=== PATIENT | female | born 1935 | race Caucasian/White ===

== ENCOUNTER 2018-10-15 07:32 | Observation (INO) ==
--- NOTE | 2018-10-15 07:39 | Emergency Department Note ---
Disposition Clinical Impression: Weakness Chest pain Qualifiers: Chest pain type: unspecified Qualified Code(s): R07.9 - Chest pain, unspecified Disposition: Admitted As Inpatient Condition: Fair Forms: ED Satisfaction Letter Time of Disposition: 09:08 General Adult HPI - General Chief complaint: ED Weakness Stated complaint: weakness Time Seen by Provider: 10/15/18 07:38 Source: patient Limitations: no limitations Nursing Notes Reviewed: Yes Vital Signs Reviewed: Yes - History of Present Illness HPI Narrative: She is an 83-year-old female who presents today with the chief complaint of weakness and chest pain. She states that she started having chest pain about 5:00 in the morning and had some pain that awoke her from sleep. She says that she had some associated reflux with radiation down her right arm. Denies any radiation down to the left arm or to her back. Denies a previous cardiac histor y but does have a family history of cardiac disease. She does have associated nausea but not thrown up. Do not take any medications prior to coming to the hospital. At this time she does not have any active chest pain. Described her weakness is generalized weakness denies any loss of function of any extremities, focal weakness. Denies any fevers, chills, palpitations, vomiting, abdominal pain. Pt Subjective Complaint: chest pain Pain Scale: 0 - Related Data Home Medications Medication Instructions Recorded Confirmed Aspirin [Adult Aspirin] 81 mg PO HS 10/15/18 10/15/18 Omeprazole [PriLOSEC] 20 mg PO BIDAC 10/15/18 10/15/18 amLODIPine [Norvasc] 5 mg PO DAILY 10/15/18 10/15/18 Allergies Allergy/AdvReac Type Severity Reaction Status Date / Time Sulfa (Sulfonamide AdvReac Nausea Verified 10/14/17 22:20 Antibiotics) Review of Systems: Constitutional: denies fever, chills HEENT: denies blurry vision, tinnitus, sore throat Cardio: Admit chest pain, denies palpiltations Lungs: admits SOB, denies wheeze, cough, hemoptysis GI: admits to nausea; denies V/D, denies abdominal pain : denies dysuria, hematuria MSK: denies decreased ROM, joint swelling or stiffness; can ambultate on their own Neuro: admits to weakness, deneis numbness or tingling, denies dizziness Skin: denies open wounds or cuts, denies tattoos Lymph: denies swelling Allergy: admits to medication allergy All systems ED: reviewed and negative except as stated. Review of Systems: As Per [facility] Past Medical History - Past Medical History Attestation: Yes The following information was validated with the patient. Source: patient Medical history: Reports: hypertension Psychiatric history: Reports: no psych history PERSONNEL GENERALIST MANAGER history: Reports: no PERSONNEL GENERALIST MANAGER history - Social History Smoking Status: Never smoker Smokeless Tobacco Status: No Alcohol use: Reports: none Drug use: Reports: none Physical Exam Vital signs noted, please see nurses notes. General: Well-developed, well-nourished patient lying in bed who appears non- toxic, anxious appearing Head: Atraumatic, normocephalic. Eyes: Sclera anicteric. ENT: Mucous membranes moist. Heart: Regular rate and rhythm without appreciable murmur. S1S2 CTA Neck: no JVD Lungs: Normal respiratory pattern without distress, lungs clear to auscultation b/l. No wheeze, rhonchi, rales or stridor Abdomen: Soft, non-tender, non-distended, no guarding or peritoneal signs. No bruising noted to the abdomen. No surgical scars present. Skin: Warm and dry without rash. Neurologic: Awake and alert with normal speech and mental status. Pupils are equal. Moves all extremities equally well. No focal deficits or lateralizing signs. Follows command. Psychiatric: anxious appearing Musculoskeletal: No peripheral edema. No asymmetrical swelling, no calf tenderness - General Limitations: no limitations General appearance: alert, in no apparent distress Course Course Narrative: Presenting with chest pain for the last 2-1/2 hours. She does have a concerning history for ACS and we will give her 1 dose of aspirin at this time. We will also obtain basic labs, EKG, chest x-ray, troponin. She will likely be admitted for a chest pain rule out. - Reevaluation(s) Reevaluation #1: Informed of her lab results and is resting comfortably in bed. She does ask for Tums for heartburn relief Time: 08:56 - Consultations Consultation #1: hOSPITALIST accepted admission Time: 09:08 Vital Signs Temperature 97.5 F L 10/15/18 07:33 Pulse Rate 68 10/15/18 07:33 Respiratory Rate 18 10/15/18 07:33 Blood Pressure 158/82 10/15/18 07:33 O2 Sat by Pulse Oximetry 95 10/15/18 07:33 Temperature 97.5 F L 10/15/18 07:33 Pulse Rate 68 10/15/18 07:33 Respiratory Rate 18 10/15/18 07:33 Blood Pressure 158/82 10/15/18 07:33 O2 Sat by Pulse Oximetry 95 10/15/18 07:33 Oxygen Delivery Oxygen Delivery Room Air Medical Decision Making - MDM Narrative Medical decision making narrative: Patient labs returned within normal limits, troponin was less than 0.03. XR is negative for acute cardiopulmonary process. Heart Score is elevated at 5 points and given the concerning history and multiple risk factors we will admit the patient for a cardiac workup rule out. Pt is agreeable to this plan and has no further questions. Medically stable for transfer up to the floor. - Medical Records Medical records reviewed: Yes I reviewed the patient's medical records. - Lab Data Lab results reviewed: Yes I reviewed the patient's lab results. Result diagrams: 10/15/18 07:58 10/15/18 07:58 Lab Results 10/15/18 10/15/18 Range/Units 07:58 07:58 WBC 9.2 (4.3-11.1) K/mcL RBC 4.97 (3.82-4.97) M/mcL Hgb 14.5 (11.5-15.4) g/dL Hct 44.8 (35.3-44.9) % MCV 90.1 (83.0-100.0) fL MCH 29.2 (28.0-33.3) pg MCHC 32.4 (31.6-35.5) g/dL RDW 13.6 (11.5-14.5) % Plt Count 221 (140-400) K/mcL MPV 11.0 (9.4-12.4) fL Immature Gran % 0.3 (0-4) % Seg Neutrophils % 62.4 % Lymphocytes % 27.8 % Monocytes % 7.3 % Eosinophils % 2.0 % Basophils % 0.2 % Neutrophils # 5.7 (1.6-8.9) K/mcL Lymphocytes # 2.5 (0.6-4.6) K/mcL Monocytes # 0.7 (0.0-1.3) K/mcL Eosinophils # 0.2 (0.0-0.6) K/mcL Basophils # 0.0 (0.0-0.2) K/mcL Sodium 140 (136-145) mEq/L Potassium 4.0 (3.5-5.1) mEq/L Chloride 105 (98-107) mEq/L Carbon Dioxide 28 (23-29) mEq/L BUN 16 (8-23) mg/dL Creatinine 0.86 (0.60-1.20) mg/dL Est GFR ( Amer) > 60 (> 60) Est GFR (Non-Af Amer) > 60 (> 60) BUN/Creatinine Ratio 19 (6-26) Glucose 118 H (70-105) mg/dL Calculated Osmolality 292 (280-300) Calcium 9.5 (8.6-10.3) mg/dL Troponin I < 0.03 (< 0.04) ng/mL - Radiology Data Radiology results reviewed: Yes I reviewed the patient's radiology results. Chest X-Ray 10/15/18 07:39 IMPRESSION: No acute cardiopulmonary disease. D/ / 10/15/2018 08:41:40 Fili Cantu MD / [facility] Interpreting Provider: Fili Cantu MD - EKG Data EKG #1 EKG attestation: Yes I reviewed and interpreted this EKG. EKG results narrative: ekG showed sinus rhythm nonspecific . There are some T-wave inversions in V1 through V3 however these are noted on previous EKG from 2009. Rate is 67 and QTC is 481. There is no evidence for ST segment elevation. No acute changes from previous EKG.
[2018-10-15] MEDS ORDERED: Aspirin 325 MG TABLET PO ONE (07:44)
--- NOTE | 2018-10-15 07:47 | Emergency Department Note ---
Disposition Clinical Impression: Weakness Chest pain Qualifiers: Chest pain type: unspecified Qualified Code(s): R07.9 - Chest pain, unspecified Disposition: Admitted As Inpatient Condition: Fair Time of Disposition: 13:42 General Adult HPI - General Chief complaint: ED Weakness Stated complaint: weakness Time Seen by Provider: 10/15/18 07:38 Source: patient Limitations: no limitations - History of Present Illness Pain Scale: 0 - Related Data Home Medications Medication Instructions Recorded Confirmed Aspirin [Adult Aspirin] 81 mg PO HS 10/15/18 10/15/18 Omeprazole [PriLOSEC] 20 mg PO BIDAC 10/15/18 10/15/18 amLODIPine [Norvasc] 5 mg PO DAILY 10/15/18 10/15/18 Allergies Allergy/AdvReac Type Severity Reaction Status Date / Time Sulfa (Sulfonamide AdvReac Nausea Verified 10/14/17 22:20 Antibiotics) Past Medical History - Past Medical History Medical history: Reports: hypertension Psychiatric history: Reports: no psych history TEMPLATE FITTER history: Reports: no TEMPLATE FITTER history - Social History Smoking Status: Never smoker Smokeless Tobacco Status: No Alcohol use: Reports: none Drug use: Reports: none Physical Exam - General Limitations: no limitations General appearance: alert, in no apparent distress Course Vital Signs Temperature 97.5 F L 10/15/18 07:33 Pulse Rate 68 10/15/18 07:33 Respiratory Rate 18 10/15/18 07:33 Blood Pressure 158/82 10/15/18 07:33 O2 Sat by Pulse Oximetry 95 10/15/18 07:33 Temperature 98.7 F 10/15/18 10:33 Pulse Rate 72 10/15/18 10:33 Respiratory Rate 17 10/15/18 10:33 Blood Pressure 138/66 10/15/18 10:33 O2 Sat by Pulse Oximetry 98 10/15/18 10:34 Oxygen Delivery Oxygen Delivery Room Air Medical Decision Making - Lab Data Result diagrams: 10/15/18 07:58 10/15/18 07:58 Lab Results 10/15/18 10/15/18 Range/Units 07:58 07:58 WBC 9.2 (4.3-11.1) K/mcL RBC 4.97 (3.82-4.97) M/mcL Hgb 14.5 (11.5-15.4) g/dL Hct 44.8 (35.3-44.9) % MCV 90.1 (83.0-100.0) fL MCH 29.2 (28.0-33.3) pg MCHC 32.4 (31.6-35.5) g/dL RDW 13.6 (11.5-14.5) % Plt Count 221 (140-400) K/mcL MPV 11.0 (9.4-12.4) fL Immature Gran % 0.3 (0-4) % Seg Neutrophils % 62.4 % Lymphocytes % 27.8 % Monocytes % 7.3 % Eosinophils % 2.0 % Basophils % 0.2 % Neutrophils # 5.7 (1.6-8.9) K/mcL Lymphocytes # 2.5 (0.6-4.6) K/mcL Monocytes # 0.7 (0.0-1.3) K/mcL Eosinophils # 0.2 (0.0-0.6) K/mcL Basophils # 0.0 (0.0-0.2) K/mcL Sodium 140 (136-145) mEq/L Potassium 4.0 (3.5-5.1) mEq/L Chloride 105 (98-107) mEq/L Carbon Dioxide 28 (23-29) mEq/L BUN 16 (8-23) mg/dL Creatinine 0.86 (0.60-1.20) mg/dL Est GFR ( Amer) > 60 (> 60) Est GFR (Non-Af Amer) > 60 (> 60) BUN/Creatinine Ratio 19 (6-26) Glucose 118 H (70-105) mg/dL Calculated Osmolality 292 (280-300) Calcium 9.5 (8.6-10.3) mg/dL Troponin I < 0.03 (< 0.04) ng/mL Attestation Statement - Attestation Attestation: I reviewed the residents documentation and agree with the residents assessment and plan of care. I have personally had face to face time with the patient. (Brief History, Brief Exam, and MDM) I personally supervised and was present for the pate/critical portions of the following procedures completed by the resident: (add procedures performed here). [id number] time provided Biotest supervising the resident physician's interpretation of the ECG. Patient presents with chest discomfort over the past 3 hours. Appears in no acute distress on exam
[2018-10-15] MEDS ORDERED: *HR* LORazepam 2 MG/ML VIAL IM ONE (08:08)
[2018-10-15 08:23] LABS: Basophils % 0.2 %; Eosinophils # 0.2 K/mcL (0.0-0.6); Hematocrit 44.8 % (35.3-44.9); Hemoglobin 14.5 g/dL (11.5-15.4); Immature Granulocytes % 0.3 % (0-4); Lymphocytes # 2.5 K/mcL (0.6-4.6); Lymphocytes % 27.8 %; Mean Corpuscular HGB Conc 32.4 g/dL (31.6-35.5); Mean Corpuscular Hemoglobin 29.2 pg (28.0-33.3); Mean Corpuscular Volume 90.1 fL (83.0-100.0); Monocytes # 0.7 K/mcL (0.0-1.3); Monocytes % 7.3 %; Neutrophils # 5.7 K/mcL (1.6-8.9); Platelet Count 221 K/mcL (140-400); Red Blood Count 4.97 M/mcL (3.82-4.97); Red Cell Distribution Width 13.6 % (11.5-14.5); Segmented Neutrophils % 62.4 %; White Blood Count 9.2 K/mcL (4.3-11.1)
[2018-10-15 08:44] LABS: BUN/Creatinine Ratio 19 (6-26); Blood Urea Nitrogen 16 mg/dL (8-23); Calcium 9.5 mg/dL (8.6-10.3); Carbon Dioxide 28 mEq/L (23-29); Chloride 105 mEq/L (98-107); Glucose 118 mg/dL (70-105); Osmolality,Calculated 292 (280-300); Sodium 140 mEq/L (136-145); eGFR For African Americans > 60 (> 60); eGFR For Non-African Americans > 60 (> 60)
[2018-10-15 08:45] LABS: Troponin I < 0.03 ng/mL (< 0.04)
--- NOTE | 2018-10-15 11:09 | Internal Med History&Physical ---
Date of Encounter: 10/15/18 Time of Encounter: 11:04 Internal Medicine - H&P: HPI History of present illness: Ms. Zheng is a 83 year old female with history of hypertension presented to ED for complaints of acute onset of right shoulder pain with epigastric discomfort. Onset was 0500 this morning which woke her up from sleep, described as an achy pain that radiates down to arm, also with nausea but no vomiting. She history of GERD. She had a stress test 8 months ago that was negative for ischemia. Family history reviewed. In the ED, an EKG showed no acute ST/T wave changes. Initial troponin negative. She was given aspirin, Benadryl, Ativan, Tums. She is currently in no acute distress. Past Med Surg Social Fam HX - Past Medical History Medical history: hypertension Psychiatric history: no psych history - Past Surgical History Additional surgical history: left arm surgery - Social History Smoking Status: Never smoker Smokeless Tobacco Status: No Alcohol use: none Drug use: none Internal Medicine - H&P: Meds Aspirin [Adult Aspirin] 81 mg PO HS 10/15/18 [History] Omeprazole [PriLOSEC] 20 mg PO BIDAC 10/15/18 [History] amLODIPine [Norvasc] 5 mg PO DAILY 10/15/18 [History] Allergy/AdvReac Type Severity Reaction Status Date / Time Sulfa (Sulfonamide AdvReac Nausea Verified 10/14/17 22:20 Antibiotics) All Systems PM: A 10-system review of systems was performed and is negative for pertinent findings except as documented above in the HPI. - Constitutional Vitals: Temp Pulse Resp BP Pulse Ox 98.7 F 72 17 138/66 98 10/15/18 10:33 10/15/18 10:33 10/15/18 10:33 10/15/18 10:33 10/15/18 10:34 General appearance: Present: A&O X 3 Exam: . - Head Head exam: Present: atraumatic, normocephalic - Eye Eye exam: Present: PERRL, conjuntiva pink, sclera anicteric Pupils: Present: PERRL - Neck Neck exam general surgery: Present: supple, trachea midline. Absent: l ymphadenopathy - Respiratory Respiratory exam: Present: CTAB. Absent: accessory muscle use, rales, rhonchi, wheezes - Cardiovascular Cardiovascular exam: Present: RRR, +S1, +S2. Absent: diastolic murmur, gallop, rubs, systolic murmur - GI/Abdominal GI/Abdominal exam: Present: normal bowel sounds, soft, no peritoneal signs. Absent: distended, tenderness - Extremities Exam Extremities exam: Present: warm, radial pulses palpable and symmetrical. Absent: calf tenderness, cyanotic, pedal edema - Neurological Exam Neurological exam: Present: CN II-XII intact, oriented X3, no focal deficits. Absent: pronater drift, facial droop, speech deficit - Skin Skin exam: Present: dry, intact Internal Med - H&P Results - Labs CBC & Chem 7: 10/15/18 07:58 10/15/18 07:58 Labs: Short CBC 10/15/18 Range/Units 07:58 WBC 9.2 (4.3-11.1) K/mcL Hgb 14.5 (11.5-15.4) g/dL Hct 44.8 (35.3-44.9) % Plt Count 221 (140-400) K/mcL Neutrophils # 5.7 (1.6-8.9) K/mcL BMP 10/15/18 07:58 Sodium 140 Potassium 4.0 Chloride 105 Carbon Dioxide 28 BUN 16 Creatinine 0.86 Glucose 118 H Calcium 9.5 Cardiac Enzymes 10/15/18 Range/Units 07:58 Troponin I < 0.03 (< 0.04) ng/mL - Impressions ITS Impressions Chest X-Ray 10/15/18 07:39 IMPRESSION: No acute cardiopulmonary disease. D/ / 10/15/2018 08:41:40 Fili Cantu MD / [facility] Interpreting Provider: Fili Cantu MD - Assessment and Plan (1) Atypical chest pain Current Visit: Yes Status: Acute Assessment and plan: Patient concerned after having acute onset of right shoulder pain and epigastric discomfort as well. Pain is non-reproducible. Stress test 8 months ago negative for ischemia. Initial troponin negative. EKG shows no acute findings. Shoulder exam is unremarkable. - Cycle troponin - 2D echocardiogram - Nitro SL prn - IV pain medication if needed. - Trial with GI cocktail for improvement. (2) Hypertension Current Visit: Yes Status: Acute Assessment and plan: Resume [facility] Qualifiers: Hypertension type: essential hypertension Qualified Code(s): I10 - Essential (primary) hypertension (3) GERD (gastroesophageal reflux disease) Current Visit: Yes Status: Acute Qualifiers: Esophagitis presence: without esophagitis Qualified Code(s): K21.9 - Gastro-esophageal reflux disease without esophagitis - Time Spent With Patient Total time spent is greater than 50% in coordination of care (as documented) at patient's floor/unit and/or counseling patient:
[2018-10-15] MEDS ORDERED: Naloxone 0.4 MG/ML INJ IVP PRN (11:17)
[2018-10-15] MEDS ORDERED: GI Cocktail 40 ML EACH PO PRN (11:20)
--- NOTE | 2018-10-15 14:47 | Electrocardiograph Report ---
[place] [id number] Test Date: 2018-10-15 Pat Name: Whitley Zheng Department: [id number] Room: [facility] Gender: F Count Team Clerk: : [id number] Requested By: Olaf Solorio Order Number: [id number] Reading MD: Amos Lawson Measurements Intervals [place] Rate: 67 P: 65 WA: 147 QRS: 25 QRSD: 139 T: 37 QT: 455 QTc: 481 Interpretive Statements Sinus rhythm Nonspecific intraventricular conduction delay NONSPECIFIC st AND t-WAVE CHANGES Electronically Signed On 10-15-2018 14:45:54 EDT by Amos Lawson
[2018-10-15] MEDS ORDERED: Perflutren Lipid Microsphere 1.3 ML in 0.9 % Sodium Chloride 8.7 ML IVP ONE (18:09)
[2018-10-15] MEDS: *HR* Heparin 5,000 UNIT/ML VIAL SQ SCH (18:19)
[2018-10-15] MEDS ORDERED: Sennosides/Docusate Sodium TABLET PO PRN (20:53)
[2018-10-15] MEDS ORDERED: Aspirin Enteric Coated 81 MG Tablet PO SCH (21:00)
[2018-10-16] MEDS: *HR* Heparin 5,000 UNIT/ML VIAL SQ SCH (05:42)
[2018-10-16] MEDS ORDERED: amLODIPine 5 MG TABLET PO SCH (09:00)
--- NOTE | 2018-10-16 09:16 | Discharge Summary ---
<Filiberto Babin N - Last Filed: 10/16/18 14:55> - NOTES TO OUTPATIENT PROVIDER Notes to Outpatient Provider: Pt came in for indigestion and right shoulder pain. Work up for cardiac cause including troponins, EKG, and CXR were all negative. Pt feeling better and wanted to leave and she is medically stable. Encouraged her to follow up for further work up of GERD and potential cholecystitis. Date of Encounter: 10/16/18 Time of Encounter: 09:14 - Discharge Diagnosis (1) Atypical chest pain Priority: Primary Status: Acute (2) Shoulder pain Priority: Secondary Status: Acute Qualifiers: Laterality: right Qualified Code(s): M25.511 - Pain in right shoulder (3) Hypertension Priority: Secondary Status: Chronic Qualifiers: Hypertension type: essential hypertension Qualified Code(s): I10 - Essential (primary) hypertension (4) GERD (gastroesophageal reflux disease) Priority: Secondary Status: Chronic Qualifiers: Esophagitis presence: without esophagitis Qualified Code(s): K21.9 - Gastro-esophageal reflux disease without esophagitis Hospital course: Ms. Zheng is a 83 year old female with a past medical history significant for hypertension and GERD. Patient presented with right shoulder pain and epigastric discomfort. Patient described it as achy and radiating down arm with some nausea. Patient had a workup for cardiac causes including an EKG, negative troponins, and chest x-ray which were all negative for acute processes. All other labs within normal ranges. Patient given a GI cocktail last night. Upon seeing patient on 10/16 she states she is feeling much better and would like to leave. A gallbladder ultrasound was ordered to check for causes of patient's right arm pain, but patient was adamant about leaving as she had somewhere to be at 2:00 that day. Patient encouraged to follow-up with outpatient ultrasound of gallbladder and to see her primary care physician in the next week. Discharge discussed with: patient - Time Spent with Patient Total time spent providing and/or coordinating discharge services: Time spent: Less than 30 minutes - Discharge Medications Prescriptions: Continued amLODIPine [Norvasc] 5 mg PO DAILY Omeprazole [PriLOSEC] 20 mg PO BIDAC Aspirin [Adult Aspirin] 81 mg PO HS Cholecalciferol (Vitamin D3) [Vitamin D3] 5,000 unit PO DAILY Home Medications: Aspirin [Adult Aspirin] 81 mg PO HS 10/15/18 [History] Cholecalciferol (Vitamin D3) [Vitamin D3] 5,000 unit PO DAILY 10/15/18 [History] Omeprazole [PriLOSEC] 20 mg PO BIDAC 10/15/18 [History] amLODIPine [Norvasc] 5 mg PO DAILY 10/15/18 [History] Allergies/Adverse Reactions: Allergy/AdvReac Type Severity Reaction Status Date / Time Sulfa (Sulfonamide AdvReac Nausea Verified 10/15/18 15:55 Antibiotics) Date of admission: 10/15/18 10:04 Primary care physician: Herb Varma MD Discharging clinician: Filiberto Babin - Constitutional Vitals: Temp Pulse Resp BP Pulse Ox 97.8 F 62 16 125/63 94 10/16/18 06:23 10/16/18 06:23 10/16/18 06:23 10/16/18 06:23 10/16/18 06:23 General appearance: Present: A&O X 3, pleasant, no acute distress, answers questions appropriately Exam: . - Head Head exam: Present: atraumatic, normocephalic - Eye Eye exam: Present: EOMI. Absent: sclera anicteric - ENT ENT exam: Present: mucous membranes moist, normal exam - Neck Neck exam general surgery: Present: full ROM, trachea midline - Respiratory Respiratory exam: Present: CTAB. Absent: respiratory distress, rhonchi, stridor, wheezes, tachypnea - Cardiovascular Cardiovascular exam: Present: RRR, +S1, +S2. Absent: diastolic murmur, systolic murmur - GI/Abdominal GI/Abdominal exam: Present: normal bowel sounds. Absent: distended, guarding, rebound, rigid, tenderness - Extremities Exam Extremities exam: Present: full ROM. Absent: calf tenderness, cyanotic - Neurological Exam Neurological exam: Present: alert. Absent: motor sensory deficit, facial droop, speech deficit - Patient Status Disposition: Home, Self-Care Condition: Good Functional capacity at discharge: independent ambulation Overall status at discharge: patient is back to baseline - Discharge Instructions Instructions: Chest Pain (GEN) Follow Up With: Herb Varma MD [Primary Care Provider] - 10/19/18 11:00 am Additional Instructions: Follow up with your Primary doctor in 1 week for further evaluation into indigestion and shoulder pain. - Diet and Activity Activity: increase activity as tolerated Diet: regular diet <Sandra Nelson - Last Filed: 10/16/18 15:01> Date of Encounter: 10/16/18 - Discharge Diagnosis (1) Atypical chest pain Status: Acute (2) Hypertension Status: Chronic Qualifiers: Hypertension type: essential hypertension Qualified Code(s): I10 - Essential (primary) hypertension (3) GERD (gastroesophageal reflux disease) Status: Chronic Qualifiers: Esophagitis presence: without esophagitis Qualified Code(s): K21.9 - Gastro-esophageal reflux disease without esophagitis Hospital course: Ms. Zheng is a 83 year old female - Time Spent with Patient Total time spent providing and/or coordinating discharge services: Date of admission: 10/15/18 10:04 Primary care physician: Herb Varma MD - Constitutional Vitals: Temp Pulse Resp BP Pulse Ox 97.5 F L 67 17 138/74 98 10/16/18 10:18 10/16/18 10:18 10/16/18 10:18 10/16/18 10:18 10/16/18 10:18 - Attending Attestation I have seen and independently assessed this patient and I agree with plan as documented Exam Gen. NAD CVS. S1 S2 WNL Resp. CTAB GI. Soft, NT, ND, +BS Ext. 2+ pulses SAMPLE MOUNTER. GCs 15 Plan Right shoulder pain. resolved. Imaging showed no fracture. Gallbladder ultrasound was ordered but patient ddeclined. Counseled to f/u with her PCP
[2018-10-16 10:22] VITALS: BP 138/74
== END 2018-10-16 12:10 | disposition home or self-care (01) ==
LOC: CDU 07:32 → EMEROOARM 07:32 → CDU 10:15 → 3ANU 16:45
PROVIDERS: ADMIT Student in an Organized Health Care Education/Training Program; ATTEND Student in an Organized Health Care Education/Training Program